=== PATIENT | male | born 1985 | race Caucasian/White ===

== ENCOUNTER 2017-03-22 21:53 | Emergency (ER) | payer OTHER ==
[~2017-03-22] VITALS: Ht 182.9 cm; Wt 105.9 kg
[~2017-03-22 21:53] MED LIST: CALCITRATE200 MG PO; CALCIUM CARBO1000 MG PO; CALCIUM500 M4 PO; HYDROCHLOROTHIA25 MG PO; LEVOTHROID100 MCG PO; NOHOMEMEDS; PROTONIX20 MG PO; SYNTHROID112 MCG PO; SYNTHROID150 MCG PO; SYNTHROID200 MCG PO; VITAMIN D1000 UNIT PO; calcitriol; hydrochlorothiazide; synthroid
[2017-03-22 22:57] LABS: HEMATOCRIT 40.9 % (38.0-50.0); MCH 30.7 PG (29.0-34.0); MCV 90.3 FL (86-99); MEAN PLAT.VOLUME 10.5 uM^3 (9.0-12.4); PLATELET COUNT 150 K/uL (156-360); RBC DIS.WIDTH-SD 39.6 % (39-53); RED BLOOD COUNT 4.53 M/uL (4.00-5.50); WHITE BLOOD COUNT 4.8 K/uL (4.1-10.2)
[2017-03-22 23:07] LABS: CHLORIDE 106 mEq/L (99-109); SODIUM 142 mEq/L (136-147)
[2017-03-22 23:10] LABS: GLUCOSE 88 mg/dL (70-99)
[2017-03-22 23:11] LABS: ANION GAP 10 MEQ/L (2-14)
[2017-03-22 23:12] LABS: TOTAL BILIRUBIN 0.2 mg/dL (0.0-1.0)
[2017-03-22 23:13] LABS: ALKALINE PHOSPHATASE 74 IU/L (3-129); GFR ESTIMATE (CALCULATED) > 59 mL/min/
[2017-03-22 23:14] LABS: UREA NITROGEN (BUN) 15 mg/dL (9-23)
[2017-03-23 01:06] LABS: SALICYLATE < 5.0 MG/DL (15-30)
[2017-03-23] MEDS ORDERED: AUGMENTIN875 MG PO (01:20)
[2017-03-23 01:46] VITALS: BP 147/111
== END 2017-03-23 01:47 | disposition home or self-care (01) ==
LOC: EME 21:53
PROVIDERS: Physician Assistant
DX: J32.9 Chronic sinusitis, unspecified (principal); R79.89 Other specified abnormal findings of blood chemistry; I10 Essential (primary) hypertension; F17.200 Nicotine dependence, unspecified, uncomplicated
CPT/HCPCS: 70450; 80053; 84443; 85027; 93005; 99281; 99284; G0480